=== PATIENT | male | born 1960 | race Caucasian/White ===

== ENCOUNTER → 2024-04-15 | Outpatient (CLI) | payer MEDICARE, BC ==
--- NOTE | 2024-04-15 11:02 | XR ---
EXAMINATION TYPE: XR humerus LT DATE OF EXAM: 04/15/2024 CLINICAL HISTORY: pain TECHNIQUE: Frontal and lateral images of the left humerus are obtained. COMPARISON: None. FINDINGS: There is no acute fracture/dislocation evident. The joint spaces appear within normal limi ts. There is a 1.5 cm radiopaque foreign body overlying the soft tissues of the mid humeral region. IMPRESSION: Patient is cleared for MRI.
== END | disposition home or self-care (01) ==
LOC: RADXRMAIN 10:14
PROVIDERS: ATTEND Orthopaedic Surgery
DX: Z18.10 Retained metal fragments, unspecified (principal)

== ENCOUNTER → 2024-04-21 | Outpatient (CLI) | payer MEDICARE ==
--- NOTE | 2024-05-13 13:43 | MR ---
Patient: Douglas Paula Ordering Physician: Unknown, Unknown ID: [id number] Phone, Pager: Phone: N/A Pager: N/A : 1960 Age/Gender: 63Y, M Primary Location: N/A Procedure: RT KNEE W/O CONTRAST S tudy Date: 04/21/2024 12:18:01 PM Order #: N/A EXAMINATION TYPE: MR knee RT wo con DATE OF EXAM: 04/21/2024 COMPARISON: Outside right knee x-ray April 10, 2024 HISTORY: Right knee pain for 4 to 5 years per patient TECHNIQUE: Multiplanar, multisequence images of the knee is performed without IV contrast. FINDINGS: MEDIAL MENISCUS: Medial extrusion of medial meniscus on coronal images Obliquely oriented signal post erior horn extends to inferior articular surface. LATERAL MENISCUS: Anterior and posterior horns are intact without tear. CRUCIATE LIGAMENTS: The anterior and posterior cruciate ligaments are intact and unremarkable. COLLATERAL LIGAMENTS: The medial collateral ligament and lateral collateral ligament complex are inta ct. Fluid signal surrounding the medial collateral ligament most prominent involving the deeper fiber s. EXTENSOR MECHANISM: Visualized quadriceps and patellar tendons are intact. EFFUSION: No significant suprapatellar joint effusion. POPLITEAL CYST: No popliteal/rodriguez cyst. TRICOMPARTMENT SPACES: Moderate tricompartment joint space loss and mild spurring. CARTILAGE: Cartilaginous loss medial tibiofemoral compartment. BONE MARROW SIGNAL: A few tiny subchondral cysts involving the posterior central tibia coronal image 25. OTHER: No additional significant abnormality is appreciated. IMPRESSION: 1. Oblique full thickness tear posterior horn medial meniscus. 2. [id number] MCL sprain injury. 3. Moderate tricompartment degenerative changes most prominent medial tibiofemoral compartment likely on the basis of osteoarthritis.
== END | disposition home or self-care (01) ==
LOC: RADMRIMAIN 13:11
PROVIDERS: ATTEND Orthopaedic Surgery
DX: S83.411A Sprain of medial collateral ligament of right knee, initial encounter (principal); M17.11 Unilateral primary osteoarthritis, right knee

== ENCOUNTER → 2024-06-04 | Outpatient (CLI) | payer MEDICARE, BC ==
[2024-06-04 15:14] LABS: Anion Gap 11.7 mmol/L (4.00-12.00); Carbon Dioxide 21.3 mmol/L (21.6-31.8); Potassium 4.9 mmol/L (3.5-5.5)
[2024-06-04 15:29] LABS: Basophils # (A) 0.05 X 10*3/uL (0.00-0.10); Basophils % (A) 0.9 %; Eosinophils % (A) 6.9 %; HCT 36.2 % (39.6-50.0); HGB 11.8 g/dL (13.0-17.0); Lymphocytes # (A) 1.54 X 10*3/uL (0.90-5.00); Lymphocytes % (A) 26.6 %; MCH 28.8 pg (27.0-32.0); MCHC 32.6 g/dL (32.0-37.0); MCV 88.3 FL (80.0-97.0); Mean Platelet Volume 10.6 FL (9.5-12.2); Monocytes # (A) 0.48 X 10*3/uL (0.20-1.00); Monocytes % (A) 8.3 %; NRBC Per 100 WBC 0 X 10*3/uL (0.00-0.01); Neutrophils % (A) 57.1 %; Platelet Count 275 X 10*3/uL (140-440); RDW 13.7 % (11.5-14.5); WBC 5.78 X 10*3/uL (4.50-10.00)
== END | disposition home or self-care (01) ==
LOC: LABWHC1 08:21
PROVIDERS: ATTEND Orthopaedic Surgery
DX: Z01.818 Encounter for other preprocedural examination
CPT/HCPCS: 36415; 80051; 85025

== ENCOUNTER 2024-06-11 10:35 | Day surgery (SDC) | payer MEDICARE, BC ==
[2024-06-04 12:56] VITALS: BMI 30.9
[2024-06-11] MEDS ORDERED: fentaNYL (PF) 50 MCG/ML 2 ML AMP IVP PRN (11:07)
[2024-06-11] MEDS ORDERED: HYDROmorphone 0.5 MG/0.5 ML SYRINGE IVP PRN (11:07)
[2024-06-11] MEDS ORDERED: MIDAZOLAM 2 MG/2 ML VIAL IV PRN (11:07)
[2024-06-11 11:38] LABS: Glucose,Whole Blood 169 mg/dL (70-110)
[2024-06-11] MEDS: LACTATED RINGERS 1,000 ML IV SCH (11:38)
[2024-06-11] MEDS: LIDOCAINE 1% (10MG/ML) FOR IV START INTRADERMA PRN (11:39)
[2024-06-11] MEDS: ONDANSETRON 4 MG/2 ML VIAL IVP ONE (11:39)
[2024-06-11] MEDS: IV FLUID CONTINUATION 1,000 ML IV ONE (11:40)
[2024-06-11] MEDS: DEXAMETHASONE SOD PHOSPHATE 4 MG/ML 1 ML VIAL IV ONE (11:40)
[2024-06-11] MEDS: BUPIVACAINE (PF) 0.25% 30 ML VIAL MISCELLANE ONE ×2 (11:42→12:29)
[2024-06-11] MEDS ORDERED: MIDAZOLAM 2 MG/2 ML VIAL ONE (11:54)
[2024-06-11] MEDS ORDERED: KETOROLAC 15 MG/ML 1 ML VIAL ONE (11:54)
[2024-06-11] MEDS ORDERED: LIDOCAINE 1% INJ 10MG/ML (20 ML MDV) ONE (11:54)
[2024-06-11] MEDS ORDERED: PROPOFOL 10 MG/ML 20 ML VIAL IV ONE (11:54)
[2024-06-11] MEDS ORDERED: fentaNYL (PF) 50 MCG/ML 2 ML AMP ONE (11:54)
--- NOTE | 2024-06-11 12:43 | P.OP ---
Date of Procedure: 06/11/24 Preoperative Diagnosis: Internal derangement right knee Postoperative Diagnosis: 1. Tear medial and lateral meniscus right knee 2. Grade IV chondromalacia medial femoral condyle right knee 3. Grade IV chondromalacia femoral sulcus right knee 4. Reactive synovitis medial, lateral and suprapatellar compartments right knee Procedure(s) Performed: 1. Arthroscopic partial medial and lateral meniscectomy right knee 2. Arthroscopic microfracture medial femoral condyle right knee 3. Arthroscopic microfracture femoral sulcus right knee 4. Arthroscopic partial synovectomy medial, lateral and suprapatellar compartments right knee Anesthesia: CARINAA, local Surgeon: Isaac Reese Estimated Blood Loss (ml): 5 Pathology: none sent Condition: stable Disposition: PACU Indications for Procedure: 63-year-old patient seen with progressive right knee pain. After having treatment options discussed, he elected to proceed with arthroscopy. Operative Findings: See description of procedure Description of Procedure: Patient was taken to the operative suite. Patient underwent a general anesthetic by the department of anesthesia. Patient was given preoperative antibiotics. The right lower extremity was placed in a well-padded arthroscopic leg avalos. The right leg was prepped and draped in the normal sterile orthopedic fashion. A lateral parapatellar and suprapatellar incision was made. Trochars were inserted. Arthroscopy was initiated. Suprapatellar pouch revealed diffuse thick reactive synovitis. The patellofemoral joint appeared to articulate congruently. There was grade I chondromalacia patella and grade III/IV chondromalacia changes of the femoral sulcus with osteochondral flap tears. The scope was guided into the medial gutter. No loose bodies or plica were identified. The scope was then guided into the medial compartment. A medial parapatellar incision was made. Trocar inserted followed by probe. There was a complex tear involving the posterior horn of the medial meniscus. There were grade III/IV chondromalacia changes medial femoral condyle with osteochondral flap tears. There was thick reactive synovitis anteriorly. I performed a partial medial meniscectomy getting down to stable meniscal tissue. I performed a chondroplasty of the medial femoral condyle getting down to stable osteochondral tissue. I performed a partial synovectomy decompressing the reactive synovitis. I did note an area of exposed bone along the medial femoral condyle measuring just over a centimeter. I introduced a microfracture awl and I performed a microfracture to the area of grade IV chondromalacia/exposed bone penetrating the bone with resultant bleeding at the microfracture site. The residual meniscus was now probed and was found to be stable. The residual osteochondral surface appeared stable. There was good decompression of the synovitis. Scope and probe were then guided into the intercondylar notch. Cruciates were identified, probed and found to be stable. The scope and probe were then guided into lateral compartment. There was a radial tear involving the mid body lateral meniscus. There were grade I/II chondromalacia changes lateral compartment with no tears. There was some thick reactive synovitis anteriorly. I performed a partial lateral meniscectomy getting down to stable meniscal tissue. I performed a partial synovectomy decompressing the reactive synovitis. The residual meniscus was probed and was found to be stable. There was good decompression of the synovitis. The scope was in guided back into the suprapatellar compartment. Introduced a motorized shaver into the suprapatellar compartment. I debrided some piecemeal fragments of meniscus that I encountered. I performed a chondroplasty of the femoral sulcus getting down to stable osteochondral tissue. I performed a partial synovectomy decompressing the reactive synovitis in the supra compartment. I did note an area of grade IV chondromalacia/exposed bone medial femoral condyle measuring about 8 mm x 1.5 cm. I introduced a microfracture awl and I performed microfracture to the area of exposed bone/grade IV chondromalacia penetrating the bone with resultant bleeding at the microfracture site. The residual osteochondral surface was probed and was found to be stable. There was good decompression of the synovitis. I took 1 more look around the entire knee, no residual debris. Inst ruments were now removed from the joint. The joint was infiltrated with .25% Marcaine. Steri-Strips were applied to the portal sites. Sterile dressings were applied. The patient was placed into a ANTONIO hose. No tourniquet was utilized. The patient was awakened, transferred to a bed and taken to recovery stable satisfactory condition.
[2024-06-11 12:45] VITALS: TEMP 97
[2024-06-11] MEDS: traMADol 50 MG TAB PO STA (13:28)
[2024-06-11 13:56] VITALS: RESP 20
[2024-06-11 14:22] VITALS: BP 142/78; PULSE 56
--- NOTE | 2024-06-11 14:50 | HP ---
HISTORY AND PHYSICAL DATE OF PROPOSED SURGERY: 06/11/2024 Douglas Paula is a 63-year-old gentleman seen with progressive right knee pain. We discussed options. He elected to proceed with right knee arthroscopy. Consent is obtained. PAST MEDICAL HISTORY: Cardiovascular disease, hypertension, hyperlipidemia, hai-cjtzblq-kdpgkuucb diabetes. PAST SURGICAL HISTORY: Noncontributory. DAILY MEDICATIONS: 1. Aspirin. 2. Atorvastatin. 3. Lisinopril. 4. Metformin. 5. Metoprolol. ALLERGIES: Penicillin. SOCIAL HISTORY: Denies tobacco use. PHYSICAL EVALUATION OF THE RIGHT KNEE: Range of motion is 0 to 120 degrees. Mild effusion. Tenderness, medial joint line. Positive medial Martín's. Ligaments stable. Hip rotation without pain. Distal neurovascular exam is intact. MRI right knee revealed a medial meniscal tear. IMPRESSION: 1. Internal derangement of right knee with medial meniscal tear. 2. Hypertension. 3. Hyperlipidemia. 4. Hsj-fbolbyv-aiqljvkug diabetes. PLAN: Right knee arthroscopy with partial medial meniscectomy and debridement. Surgery is scheduled for 06/11/2024. MMODL / IJN: [id number] /
== END 2024-06-11 14:29 | disposition home or self-care (01) ==
LOC: OR 10:35
PROVIDERS: ATTEND Orthopaedic Surgery
DX: M23.91 Unspecified internal derangement of right knee

== ENCOUNTER 2024-10-13 15:47 | Inpatient (IN) | payer MEDICARE, BC ==
[2024-10-13] MEDS: ASPIRIN 81 MG PO STA (16:21)
--- NOTE | 2024-10-13 16:24 | ED ---
General Adult HPI - General Chief complaint: Chest Pain Stated complaint: Chest pain Time Seen by Provider: 10/13/24 16:06 Source: patient Mode of arrival: ambulatory Limitations: no limitations - History of Present Illness Initial comments: Dictation was produced using [email or web address] dictation software. please excuse any grammatical, word or spelling errors. Chief Complaint: 63-year-old male presents to the emergency department for chest pain History of Present Illness: Patient 63-year-old male presents emergency department with chest pain states that it feels like a tightness in his lungs denies any shortness of breath states that when his lungs feel tight he feels tightness in his jaw on his face. States that it all comes together at once in all resides at once. He has extensive history coronary disease including multiple coronary artery stents. Denies any radiation of symptoms down the extremities. No associated paresthesia, nausea or diaphoresis. Patient denies any symptoms at the bedside The ROS documented in this emergency department record has been reviewed and confirmed by me. Those systems with pertinent positive or negative responses have been documented in the HPI. All other systems are other negative and/or noncontributory. - Related Data Home Medications Medication Instructions Recorded Confirmed Aspirin EC [Ecotrin Low Dose] 81 mg PO DAILY 06/04/24 10/13/24 Atorvastatin [Lipitor] 80 mg PO DAILY 06/04/24 10/13/24 Fexofenadine HCl 180 mg PO DAILY PRN 06/04/24 10/13/24 Metoprolol Tartrate [Lopressor] 50 mg PO BID 06/04/24 10/13/24 Sildenafil Citrate [Sildenafil] 40 - 60 mg PO DAILY PRN 06/04/24 10/13/24 glipiZIDE [Glucotrol] 10 mg PO BID-W/MEALS 06/04/24 10/13/24 lisinopriL [Zestril] 10 mg PO DAILY 06/04/24 10/13/24 metFORMIN HCL 1,000 mg PO BID-W/MEALS 06/04/24 10/13/24 Allergies Allergy/AdvReac Type Severity Reaction Status Date / Time Penicillins Allergy Causes Verified 10/13/24 16:27 "internal pain" & severe itching. Review of Systems ROS Statement: Those systems with pertinent positive or pertinent negative responses have been documented in the HPI. ROS Other: All systems not noted in ROS Statement are negative. Past Medical History Past Medical History: Chest Pain / Angina, Diabetes Mellitus, Hypertension, Myocardial Infarction (OK) History of Any Multi-Drug Resistant Organisms: None Reported Past Surgical History: Heart Catheterization With Stent Past Psychological History: No Psychological Hx Reported Smoking Status: Never smoker Past Alcohol Use History: None Reported Past Drug Use History: None Reported General Exam - General Exam Comments Initial Comments: PHYSICAL EXAM: General Impression: Alert and oriented x3, not in acute distress HEENT: Normocephalic atraumatic, extra-ocular movements intact, pupils equal and reactive to light bilaterally, mucous membranes moist. Cardiovascular: Heart regular rate and rhythm Chest: Able to complete full sentences, no retractions, no tachypnea Abdomen: abdomen soft, non-tender, non-distended, no organomegaly Musculoskeletal: Pulses present and equal in all extremities, no peripheral edema Motor: no focal deficits noted Neurological: CN II-XII grossly intact, no focal motor or sensory deficits noted Skin: Intact with no visualized rashes Psych: Normal affect and mood Limitations: no limitations Course Vital Signs 10/13/24 10/13/24 10/13/24 15:53 16:10 17:50 Temperature 97.7 F Pulse Rate 68 79 68 Pulse Rate [ 75 Twister In ] Respiratory 20 18 18 Rate Blood Pressure 193/91 195/105 188/93 O2 Sat by Pulse 99 96 Oximetry - Reevaluation(s) Reevaluation #1: 10/13/24 17:31 Repeat EKG performed at 1630 showing no dynamic changes. EKG Findings - EKG Comments: EKG Findings:: My EKG interpretation: Ventricular rate 67, sinus rhythm,. Will 202, cures 119, QTc 411. No DC prolongation, no QTC prolongation. No old EKG for comparison and in electronic medical record there does appear to be diffuse depressions in inferior leads. There does appear to be isolated depression in V6 and less than V5. Overall this EKG is concerning for ischemic changes. There is no ST elevations. Medical Decision Making - Medical Decision Making Was pt. sent in by a medical professional or institution (, PA, DIRECTOR OF FINANCIAL REPORTING, urgent care, hospital, or care home...) When possible be specific @ -No Did you speak to anyone other than the patient for history (EMS, parent, family, police, friend...)? What history was obtained from this source @ -No Did you review nursing and triage notes (agree or disagree)? Why? @ -I reviewed and agree with nursing and triage notes Were old charts reviewed (outside hosp., previous admission, EMS record, old EKG, old radiological studies, urgent care reports/EKG's, care home records)? Report findings @ -No old charts were reviewed Differential Diagnosis (chest pain, altered mental status, abdominal pain women, abdominal pain men, vaginal bleeding, musculoskeletal, weakness, fever, dyspnea, syncope, headache, dizziness, GI bleed, back pain, seizure, CVA, palpatations, mental health)? @ -Differential Chest Pain: Stable Angina, Unstable Angina, STEMI, NSTEMI Aortic Dissection, Pneumothorax, Musculoskeletal, Esophageal Spasm GERD, Cholecystitis, Pancreatitis, Zoster, this is not meant to be an all-inclusive list. EKG interpreted by me (3pts min.). @ -See above X-rays interpreted by me (1pt min.). @ -Chest x-ray is nonacute CT interpreted by me (1pt min.). @ -None done U/S interpreted by me (1pt. min.). @ -None done What testing was considered but not performed or refused? (CT, X-rays, U/S, labs)? Why? @ -None What meds were considered but not given or refused? Why? @ -None Was smoking cessation discussed for >3mins.? @ -No Were there social determinants of health that impacted care today? How? (Homelessness, low income, unemployed, alcoholism, drug addiction, transportation, low edu. Level, literacy, decrease access to med. care, [facility], rehab)? @ -No Was there de-escalation of care discussed even if they declined (Discuss DNR or withdrawal of care, Hospice)? DNR status @ -No What co-morbidities impacted this encounter? (DM, HTN, Smoking, COPD, CAD, Cancer, CVA, ARF, Chemo, Hep., AIDS, mental health diagnosis, sleep apnea, morbid obesity)? @ -Coronary artery disease Was patient admitted / discharged? Hospital course, mention meds given and route, prescriptions, significant lab abnormalities, going to OR and other pertinent info. @ -63-year-old male with a history of coronary artery disease and multiple coronary artery stents presents to the emergency department atypical chest pain typical features. Patient pain-free at the bedside is well-appearing. EKG concerning for ischemia. We do not have old EKGs for comparison. Serial EKG showed no dynamic changes. Laboratory evaluation obtained. Troponin 0.042. Rest of labs unremarkable. Patient reevaluated at bedside at 5:50 PM still pain-free. Patient given aspirin and started on heparin will be admitted for concerns of non-ST segment elevation OK. Did you discuss the management of the patient with other professionals (professionals i.e. , PA, DIRECTOR OF FINANCIAL REPORTING, lab, RT, psych nurse, social services assistant, physician's assistant, teacher, officer captain, ed case manager)? Give summary @ -Case discussed with hospitalist for admission Was critical care preformed (if so, how long)? @ -Yes, 33 minutes for management of acute coronary syndrome Undiagnosed new problem with uncertain prognosis? @ -No Drug Therapy requiring intensive monitoring for toxicity (Heparin, Nitro, Insulin, Cardizem)? @ -No Were any procedures done? @ -No Diagnosis/symptom? Acute, or Chronic, or Acute on Chronic? Uncomplicated (without systemic symptoms) or Complicated (systemic symptoms)? @ -NSTEMI Side effects of treatment? @ -No Exacerbation, Progression, or Severe Exacerbation? @ -No Poses a threat to life or bodily function? How? (Chest pain, [place], [place], pneumonia, PE, COPD, DKA, ARF, appy, cholecystitis, CVA, Diverticulitis, Homicidal, Suicidal, threat to staff... and all critical care pts) @ -yes - Lab Data Result diagrams: 10/13/24 16:00 10/13/24 16:00 Lab Results 10/13/24 10/13/24 10/13/24 Range/Units 16:00 16:00 16:00 WBC 8.3 (3.8-10.6) k/uL RBC 4.38 (4.30-5.90) m/uL Hgb 12.6 L (13.0-17.5) gm/dL Hct 38.6 L (39.0-53.0) % MCV 88.2 (80.0-100.0) fL MCH 28.7 (25.0-35.0) pg MCHC 32.5 (31.0-37.0) g/dL RDW 13.7 (11.5-15.5) % Plt Count 252 (150-450) k/uL MPV 7.7 Neutrophils % 72 % Lymphocytes % 19 % Monocytes % 5 % Eosinophils % 3 % Basophils % 0 % Neutrophils # 6.0 (1.3-7.7) k/uL Lymphocytes # 1.6 (1.0-4.8) k/uL Monocytes # 0.4 (0-1.0) k/uL Eosinophils # 0.3 (0-0.7) k/uL Basophils # 0.0 (0-0.2) k/uL PT 11.5 (10.0-12.5) sec INR 1.0 (<1.2) APTT 18.3 L (22.0-30.0) sec Sodium 137 (137-145) mmol/L Potassium 4.6 (3.5-5.1) mmol/L Chloride 100 (98-107) mmol/L Carbon Dioxide 26 (22-30) mmol/L Anion Gap 11 mmol/L BUN 12 (9-20) mg/dL Creatinine 0.96 (0.66-1.25) mg/dL Est GFR (CKD-EPI)AfAm >90 (>60 ml/min/1.73 sqM) Est GFR (CKD-EPI)NonAf 83 (>60 ml/min/1.73 sqM) Glucose 216 H (74-99) mg/dL Calcium 10.3 H (8.4-10.2) mg/dL Magnesium 1.5 L (1.6-2.3) mg/dL Total Bilirubin 1.6 H (0.2-1.3) mg/dL AST 28 (17-59) U/L ALT 23 (4-49) U/L Alkaline Phosphatase 64 (38-126) U/L Troponin I (0.000-0.034) ng/mL NT-Pro-B Natriuret Pep 2230 pg/mL Total Protein 7.3 (6.3-8.2) g/dL Albumin 4.5 (3.5-5.0) g/dL 10/13/24 Range/Units 16:00 WBC (3.8-10.6) k/uL RBC (4.30-5.90) m/uL Hgb (13.0-17.5) gm/dL Hct (39.0-53.0) % MCV (80.0-100.0) fL MCH (25.0-35.0) pg MCHC (31.0-37.0) g/dL RDW (11.5-15.5) % Plt Count (150-450) k/uL MPV Neutrophils % % Lymphocytes % % Monocytes % % Eosinophils % % Basophils % % Neutrophils # (1.3-7.7) k/uL Lymphocytes # (1.0-4.8) k/uL Monocytes # (0-1.0) k/uL Eosinophils # (0-0.7) k/uL Basophils # (0-0.2) k/uL PT (10.0-12.5) sec INR (<1.2) APTT (22.0-30.0) sec Sodium (137-145) mmol/L Potassium (3.5-5.1) mmol/L Chloride (98-107) mmol/L Carbon Dioxide (22-30) mmol/L Anion Gap mmol/L BUN (9-20) mg/dL Creatinine (0.66-1.25) mg/dL Est GFR (CKD-EPI)AfAm (>60 ml/min/1.73 sqM) Est GFR (CKD-EPI)NonAf (>60 ml/min/1.73 sqM) Glucose (74-99) mg/dL Calcium (8.4-10.2) mg/dL Magnesium (1.6-2.3) mg/dL Total Bilirubin (0.2-1.3) mg/dL AST (17-59) U/L ALT (4-49) U/L Alkaline Phosphatase (38-126) U/L Troponin I 0.042 H* (0.000-0.034) ng/mL NT-Pro-B Natriuret Pep pg/mL Total Protein (6.3-8.2) g/dL Albumin (3.5-5.0) g/dL Disposition Clinical Impression: NSTEMI (non-ST elevated myocardial infarction) Disposition: ADMITTED IP TO THIS HOSP Condition: Serious Referrals: Juancho Carmichael MD [Primary Care Provider] - 1-2 days Decision Time: 17:51
[2024-10-13 16:31] LABS: ALT 23 U/L (4-49); AST 28 U/L (17-59); African American GFR (CKD) >90 (>60 ml/min/1.73 sqM); Albumin 4.5 g/dL (3.5-5.0); Alkaline Phosphatase 64 U/L (38-126); Anion Gap 11 mmol/L; Blood Urea Nitrogen 12 mg/dL (9-20); Calcium 10.3 mg/dL (8.4-10.2); Carbon Dioxide 26 mmol/L (22-30); Chloride 100 mmol/L (98-107); Glucose 216 mg/dL (74-99); Magnesium 1.5 mg/dL (1.6-2.3); Non-African American GFR(CKD) 83 (>60 ml/min/1.73 sqM); Potassium 4.6 mmol/L (3.5-5.1); Sodium 137 mmol/L (137-145); Total Bilirubin 1.6 mg/dL (0.2-1.3); Total Protein 7.3 g/dL (6.3-8.2)
[2024-10-13 16:38] LABS: Basophils % (A) 0 %; Eosinophils # (A) 0.3 k/uL (0-0.7); Eosinophils % (A) 3 %; HCT 38.6 % (39.0-53.0); HGB 12.6 gm/dL (13.0-17.5); Lymphocytes # (A) 1.6 k/uL (1.0-4.8); Lymphocytes % (A) 19 %; MCH 28.7 pg (25.0-35.0); MCHC 32.5 g/dL (31.0-37.0); MCV 88.2 fL (80.0-100.0); Mean Platelet Volume 7.7; Monocytes # (A) 0.4 k/uL (0-1.0); Monocytes % (A) 5 %; NT-Pro-B-Type Natriuretic Pept 2230 pg/mL; Neutrophils % (A) 72 %; Platelet Count 252 k/uL (150-450); RBC 4.38 m/uL (4.30-5.90); RDW 13.7 % (11.5-15.5); WBC 8.3 k/uL (3.8-10.6)
[2024-10-13 16:43] LABS: Prothrombin Time 11.5 sec (10.0-12.5)
[2024-10-13 16:45] LABS: Partial Thromboplastin Time 18.3 sec (22.0-30.0)
--- NOTE | 2024-10-13 17:20 | XR ---
EXAMINATION TYPE: XR chest 2V DATE OF EXAM: 10/13/2024 4:42 PM COMPARISON: None. CLINICAL INDICATION: Male, 63 years old with history of Chest Pain, TECHNIQUE: XR chest 2V view(s) obtained. FINDINGS: The heart size is normal. The pulmonary vasculature is normal. The lungs are clear. IMPRESSION: 1. No acute pulmonary process. [facility], Workstation: [facility], 10/13/2024 5:17 PM
[2024-10-13] MEDS ORDERED: NITROGLYCERIN SL TABS 0.4 MG TAB SUBLINGUAL PRN (17:44)
[2024-10-13] MEDS: HEPARIN SODIUM 1,000 UN/ML (10ML VL) IV ONE (17:51)
[2024-10-13] MEDS: HEPARIN SOD,PORK IN 0.45% NACL 25,000 UNIT in 0.45% NACL 1 250ML.BAG IV SCH (17:52)
[2024-10-14] MEDS: HEPARIN SODIUM 1,000 UN/ML (10ML VL) IV PRN (01:46)
[2024-10-14] MEDS ORDERED: DEXTROSE 50% SYRINGE 50 ML IVP PRN ×2 (06:40)
[2024-10-14 08:05] LABS: Glucose,Whole Blood 132 mg/dL (70-110)
[2024-10-14] MEDS ORDERED: ALPRAZolam 0.5 MG TAB PO PRN (08:09)
[2024-10-14] MEDS ORDERED: ALPRAZolam 0.25 MG TAB PO PRN (08:09)
[2024-10-14] MEDS: INSULIN ASPART (NovoLOG) 100 UNIT/ML VIAL SQ SCH (08:12)
[2024-10-14] MEDS: lisinopriL 10 MG TAB PO SCH (08:23)
[2024-10-14] MEDS: ASPIRIN 81 MG PO SCH (08:23)
[2024-10-14] MEDS: ATORVASTATIN 80 MG TAB PO SCH (08:23)
[2024-10-14] MEDS: SODIUM CHLORIDE 0.9% 1,000 ML in EMPTY BAG 1 BAG IV SCH (08:32)
[2024-10-14] MEDS ORDERED: ASPIRIN 325 MG TAB PO SCH (09:00)
[2024-10-14] MEDS: SODIUM CHLORIDE 0.9% 1,000 ML IV SCH ×2 (09:25→15:51)
[2024-10-14] MEDS: METOPROLOL TARTRATE 50 MG TAB PO SCH (09:30)
[2024-10-14] MEDS: IV FLUID CONTINUATION 1,000 ML IV ONE (10:08)
[2024-10-14] MEDS: HEPARIN SODIUM,PORCINE (1 ML) 2,500 UNIT in SODIUM CHLORIDE 0.9% 250 ML IRRIGATION ONE (10:09)
[2024-10-14] MEDS: HEPARIN SODIUM,PORCINE 10,000 UNIT in SODIUM CHLORIDE 0.9% 1,000 ML IRRIGATION ONE (10:09)
[2024-10-14] MEDS: MIDAZOLAM 2 MG/2 ML VIAL IVP ONE (10:10)
[2024-10-14] MEDS: LIDOCAINE 1% INJ 10MG/ML (20 ML MDV) SQ ONE (10:14)
[2024-10-14] MEDS: VERAPAMIL SYRINGE (5 MG/10 ML) INTRAARTER ONE (10:18)
[2024-10-14] MEDS: HEPARIN SODIUM 1,000 UN/ML (10ML VL) IVP ONE ×2 (10:21→10:36)
[2024-10-14] MEDS: TICAGRELOR 90 MG TAB PO ONE (11:28)
[2024-10-14] MEDS: NITROGLYCERIN 1000MCG/10ML SYRINGE INTRAARTER ONE (11:39)
[2024-10-14] MEDS: NITROGLYCERIN 1000MCG/10ML SYRINGE INTRACORON ONE (11:46)
[2024-10-14] MEDS: IOPAMIDOL-370 100ML BTL INJ ONE (11:49)
[2024-10-14] MEDS ORDERED: ZOLPIDEM 5 MG TAB PO PRN (12:19)
[2024-10-14] MEDS ORDERED: RX INFO: IV CONTRAST WAS GIVEN 1 EACH MISC MISCELLANE PRN (12:19)
[2024-10-14] MEDS ORDERED: ATROPINE SULFATE 0.1 MG/ML 10ML SYRINGE IV PRN (12:19)
[2024-10-14] MEDS ORDERED: MAG HYDROX/AL HYDROX/SIMETH 30 ML CUP PO PRN (12:19)
[2024-10-14] MEDS ORDERED: ACETAMINOPHEN TAB 325 MG TAB PO PRN (12:25)
[2024-10-14 14:00] VITALS: BMI 32.3
--- NOTE | 2024-10-14 14:16 | P.CRDCN ---
History of Present Illness Consult date: 10/14/24 Consult reason: chest pain History of present illness: This is a 63-year-old male patient of Dr. Del Toro with past medical history of diabetes mellitus type 2, coronary artery disease with previous TN in 2017 status post 2 stent placement at that time. We have been asked to evaluate the patient for chest pain. Patient states that he has been having trouble with bacterial upper respiratory infection but yesterday developed chest pain that th en went to his jaw and his ears and then he developed a sinus headache. He said it lasted for about 1 hour on and off. He took some ibuprofen that did not help. He did not have nitroglycerin at home. He denies having any chest pain at this time. Patient is seen in the emergency center waiting for a bed on the cardiac stepdown unit. He has been started on a heparin drip. Discussed patient option of cardiac catheterization which she is agreeable to move forward with. Regarding diabetes, patient does not know his most recent A1c but states he usually runs around 7. Patient presented with a blood pressure 193/91 and currently blood pressure is 141/73, heart rate 52, pulse ox 99%. -EKG: Sinus rhythm with T wave inversions -Chest x-ray: No acute process. -Laboratory studies: WBC 8.3, hemoglobin 12.6. Potassium 4.6, creatinine 0.96. Troponin 0.042, 0.053, 0.069. proBNP 2230. Magnesium 1.5. -Home cardiac medications: Aspirin 81 mg daily, atorvastatin 80 mg daily, lisinopril 10 mg daily, Lopressor 50 mg twice daily. Review Of Systems: At the time of my exam: CONSTITUTIONAL: Denies fever or chills. HEENT: Denies blurred vision, vision changes, or eye pain. Denies hemoptysis CARDIOVASCULAR: Denies chest pain. Denies orthopnea. Denies PND. Denies palpitations RESPIRATORY: Denies shortness of breath. GASTROINTESTINAL: Denies abdominal pain. Denies nausea or vomiting. HEMATOLOGIC: Denies bleeding disorders. GENITOURINARY: Denies any blood in urine. SKIN: Denies puritis. Denies rash. Physical examination: Gen: This is a 63-year-old male in no acute distress VS: reviewed HEENT: Head is atraumatic, normocephalic. Pupils equal, round. Sclerae is anicteric. NECK: Supple. No JVD. LUNGS: Clear to auscultation. No wheezes or rhonchi. No intercostal retractions. HEART: Regular rate and rhythm. No murmur. ABDOMEN: Soft No tenderness. EXTREMITIES: No pedal edema. No calf tenderness. NEUROLOGICAL: Patient is awake, alert and oriented x3. Assessment: Elevated troponin with abnormal EKG, non-ST KRISTA History of coronary artery disease with previous TN in 2017 s/p stenting in the left main and 1 other vessel Diabetes mellitus type 2 Hypertension Hyperlipidemia Plan: Resume patient's home cardiac medications Continue heparin drip Patient will be scheduled for cardiac catheterization today with Dr. Gupta Obtain records from patient's primary rigger up Obtain 2-D echocardiogram and Doppler study to assess cardiac structure and function Further recommendations to follow based upon clinical course Thank you kindly for this consultation. Nurse practitioner note has been reviewed, I agree with documented findings and plan of care. Patient was seen and examined. Past Medical History Past Medical History: Chest Pain / Angina, Diabetes Mellitus, Hypertension, Myocardial Infarction (TN) Last Myocardial Infarction Date:: 2016 History of Any Multi-Drug Resistant Organisms: None Reported Past Surgical History: Heart Catheterization With Stent Additional Past Surgical History / Comment(s): 2 stents in 2017 Past Anesthesia/Blood Transfusion Reactions: No Reported Reaction Date of Last Stent Placement:: 2016 Past Psychological History: No Psychological Hx Reported Smoking Status: Never smoker Past Alcohol Use History: None Reported Past Drug Use History: None Reported Medications and Allergies Home Medications Medication Instructions Recorded Confirmed Type Aspirin EC [Ecotrin Low Dose] 81 mg PO DAILY 06/04/24 10/13/24 History Atorvastatin [Lipitor] 80 mg PO DAILY 06/04/24 10/13/24 History Fexofenadine HCl 180 mg PO DAILY PRN 06/04/24 10/13/24 History Metoprolol Tartrate [Lopressor] 50 mg PO BID 06/04/24 10/13/24 History Sildenafil Citrate [Sildenafil] 40 - 60 mg PO DAILY PRN 06/04/24 10/13/24 H istory glipiZIDE [Glucotrol] 10 mg PO BID-W/MEALS 06/04/24 10/13/24 History lisinopriL [Zestril] 10 mg PO DAILY 06/04/24 10/13/24 History metFORMIN HCL 1,000 mg PO BID-W/MEALS 06/04/24 10/13/24 History Allergies Allergy/AdvReac Type Severity Reaction Status Date / Time Penicillins Allergy Causes Verified 10/13/24 16:27 "internal pain" & severe itching. Physical Exam Vitals: Vital Signs Temp Pulse Pulse Resp BP BP Pulse Ox 10/14/24 06:06 52 L 18 141/73 99 10/14/24 03:00 52 L 16 98 10/14/24 00:25 56 L 16 140/55 97 10/13/24 23:01 52 L 16 140/76 95 10/13/24 20:32 53 L 18 140/76 95 10/13/24 19:00 55 L 18 142/83 97 10/13/24 17:50 68 18 188/93 96 10/13/24 16:10 79 75 18 195/105 10/13/24 15:53 97.7 F 68 20 193/91 99 Intake and Output 10/13/24 10/14/24 10/14/24 22:59 06:59 14:59 Intake Total 79.167 77.798 Balance 79.167 77.798 Intake: Intake, IV Titration 79.167 77.798 Amount Heparin Sod,Pork in 0.45% 79.167 77.798 NaCl 25,000 unit In 0.45 % NaCl 1 250ml.bag @ 8.89 UNITS/KG/HR 10 mls/hr IV .Q24H [facility] Rx#:[id number] Other: Weight 112.491 kg 111.13 kg Results 10/13/24 16:00 10/13/24 16:00 Cardiac Enzymes 10/13/24 10/13/24 10/13/24 Range/Units 16:00 16:00 18:34 AST 28 (17-59) U/L Troponin I 0.042 H* 0.053 H* (0.000-0.034) ng/mL 10/14/24 Range/Units 00:19 AST (17-59) U/L Troponin I 0.069 H* (0.000-0.034) ng/mL Coagulation 10/13/24 10/14/24 Range/Units 16:00 00:19 PT 11.5 (10.0-12.5) sec APTT 18.3 L 30.3 H (22.0-30.0) sec CBC 10/13/24 Range/Units 16:00 WBC 8.3 (3.8-10.6) k/uL RBC 4.38 (4.30-5.90) m/uL Hgb 12.6 L (13.0-17.5) gm/dL Hct 38.6 L (39.0-53.0) % Plt Count 252 (150-450) k/uL Comprehensive Metabolic Panel 10/13/24 Range/Units 16:00 Sodium 137 (137-145) mmol/L Potassium 4.6 (3.5-5.1) mmol/L Chloride 100 (98-107) mmol/L Carbon Dioxide 26 (22-30) mmol/L BUN 12 (9-20) mg/dL Creatinine 0.96 (0.66-1.25) mg/dL Glucose 216 H (74-99) mg/dL Calcium 10.3 H (8.4-10.2) mg/dL AST 28 (17-59) U/L ALT 23 (4-49) U/L Alkaline Phosphatase 64 (38-126) U/L Total Protein 7.3 (6.3-8.2) g/dL Albumin 4.5 (3.5-5.0) g/dL Current Medications Generic Name Dose Route Start Last Admin Trade Name Devinq PRN Reason Stop Dose Admin Aspirin 325 mg 10/14/24 09:00 Aspirin 325 Mg Tab PO DAILY [facility] Atorvastatin Calcium 80 mg 10/14/24 09:00 Atorvastatin 80 Mg Tab PO DAILY [facility] Dextrose/Water 25 ml 10/14/24 06:40 Dextrose 50% Syringe 50 Ml IVP PER PROTOCOL PRN Hypoglycemia Protocol Dextrose/Water 50 ml 10/14/24 06:40 Dextrose 50% Syringe 50 Ml IVP PER PROTOCOL PRN Hypoglycemia Protocol Heparin Sodium (Porcine) 0 unit 10/13/24 17:28 10/14/24 01:46 Heparin Sodium 1,000 Un/Ml (10ml Vl) IV 5,550 unit PER PROTOCOL PRN Administration Low PTT Protocol Heparin Sodium/Sodium Chloride 250 mls @ 10 mls/hr 10/13/24 17:30 10/14/24 07:36 25,000 unit/ Sodium Chloride IV 11.89 units/kg/hr .Q24H PATRICIO 13.375 mls/hr Titration Protocol 8.89 UNITS/KG/HR Insulin Aspart 0 unit 10/14/24 07:30 Insulin Aspart (Novolog) 100 Unit/Ml Vial SQ ACHS [facility] Protocol Lisinopril 10 mg 10/14/24 09:00 Lisinopril 10 Mg Tab PO DAILY [facility] Nitroglycerin 0.4 mg 10/13/24 17:44 Nitroglycerin Sl Tabs 0.4 Mg Tab SUBLINGUAL Q5M PRN Chest Pain Intake and Output 10/13/24 10/14/24 10/14/24 22:59 06:59 14:59 Intake Total 79.167 77.798 Balance 79.167 77.798 Intake: Intake, IV Titration 79.167 77.798 Amount Heparin Sod,Pork in 0.45% 79.167 77.798 NaCl 25,000 unit In 0.45 % NaCl 1 250ml.bag @ 8.89 UNITS/KG/HR 10 mls/hr IV .Q24H [facility] Rx#:[id number] Other: Weight 112.491 kg 111.13 kg 10/13/24 16:00 10/13/24 16:00
--- NOTE | 2024-10-14 14:17 | P.HPIM ---
History of Present Illness H&P Date: 10/14/24 This is a pleasant 63-year-old gentleman with past medical history significant for coronary artery disease and prior stenting back in 2018. Patient comes in with complaints of sharp pain in the chest with radiation into the ear jaw and sinuses. Patient states that the pain was coming and going since the weekend initially thought it was a sinus infection however when the pain became sharp and not subsiding he came into the hospital for further evaluation. Chest x-ray reveals no acute cardiopulmonary process. Patient was found to have troponin elevation at 0.042, 0.053 and 0.069. EKG on admission reveals sinus rhythm with PVCs, inverted T wave in lead II. Started on IV heparin and admitted to the hospital with a cardiology consultation. 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 Currently evaluated in extended stay unit sitting up in the chair. He is currently denying any further reports of chest discomfort or shortness of breath. His TR band is an intact and he is recovering from the catheterization. Patient has been started on dual ant iplatelet therapy with aspirin and Brilinta. Echocardiogram has been taken and currently pending reports at this time. REVIEW OF SYSTEMS: CONSTITUTIONAL: No fever, no malaise, no fatigue. HEENT: No recent visual problems or hearing problems. Denied any sore throat. CARDIOVASCULAR: No chest pain, orthopnea, PND, no palpitations, no syncope. PULMONARY: No shortness of breath, no cough, no hemoptysis. GASTROINTESTINAL: No diarrhea, no nausea, no vomiting, no abdominal pain. NEUROLOGICAL: No headaches, no weakness, no numbness. HEMATOLOGICAL: Denies any bleeding or petechiae. GENITOURINARY: Denies any burning micturition, frequency, or urgency. MUSCULOSKELETAL/RHEUMATOLOGICAL: Denies any joint pain, swelling, or any muscle pain. ENDOCRINE: Denies any polyuria or polydipsia. The rest of the 14-point review of systems is negative. PHYSICAL EXAMINATION: GENERAL: The patient is alert and oriented x3, not in any acute distress. Well developed, well nourished. HEENT: Pupils are round and equally reacting to light. EOMI. No scleral icterus. No conjunctival pallor. Normocephalic, atraumatic. No pharyngeal erythema. No thyromegaly. CARDIOVASCULAR: S1 and S2 present. No murmurs, rubs, or gallops. PULMONARY: Chest is clear to auscultation, no wheezing or crackles. ABDOMEN: Soft, nontender, nondistended, normoactive bowel sounds. No palpable organomegaly. MUSCULOSKELETAL: No joint swelling or deformity. EXTREMITIES: No cyanosis, clubbing, or pedal edema. NEUROLOGICAL: Gross neurological examination did not reveal any focal deficits. SKIN: No rashes. Assessment and plan Acute non-ST elevation SD status postcardiac catheterization with stenting to the RCA History of coronary artery disease with prior cardiac stenting History of hypertension Diabetes mellitus type 2 GI Prophylaxis Full Code Plan Hold metformin Resume glipizide and start accuchecks ACHS and sliding scale insulin Continue dual antiplatelet medication with aspirin and brilinta Echocardiogram ordered and pending Continue cardiac employee benefits director electrolytes and renal function The impression and plan of care has been dictated by Cherri Lopez Nurse Practitioner as directed. Dr. Kaley MD I have performed a history and physical examination and medical decision making of this patient, discussed the same with the dictator, and agree with the dictators assessment and plan as written, documented as a scribe. Based on total visit time, I have performed more than 50% of this visit. Past Medical History Past Medical History: Chest Pain / Angina, Diabetes Mellitus, Hypertension, Myocardial Infarction (SD) Last Myocardial Infarction Date:: 2016 History of Any Multi-Drug Resistant Organisms: None Reported Past Surgical History: Heart Catheterization With Stent Additional Past Surgical History / Comment(s): 2 stents in 2017 Past Anesthesia/Blood Transfusion Reactions: No Reported Reaction Date of Last Stent Placement:: 2016 Past Psychological History: No Psychological Hx Reported Smoking Status: Never smoker Past Alcohol Use History: None Reported Past Drug Use History: None Reported Medications and Allergies Home Medications Medication Instructions Recorded Confirmed Type Aspirin EC [Ecotrin Low Dose] 81 mg PO DAILY 06/04/24 10/13/24 History Atorvastatin [Lipitor] 80 mg PO DAILY 06/04/24 10/13/24 History Fexofenadine HCl 180 mg PO DAILY PRN 06/04/24 10/13/24 History Metoprolol Tartrate [Lopressor] 50 mg PO BID 06/04/24 10/13/24 History Sildenafil Citrate [Sildenafil] 40 - 60 mg PO DAILY PRN 06/04/24 10/13/24 Histor y glipiZIDE [Glucotrol] 10 mg PO BID-W/MEALS 06/04/24 10/13/24 History lisinopriL [Zestril] 10 mg PO DAILY 06/04/24 10/13/24 History metFORMIN HCL 1,000 mg PO BID-W/MEALS 06/04/24 10/13/24 History Allergies Allergy/AdvReac Type Severity Reaction Status Date / Time Penicillins Allergy Causes Verified 10/13/24 16:27 "internal pain" & severe itching. Physical Exam Vitals: Vital Signs Temp Pulse Pulse Resp BP BP Pulse Ox 10/14/24 08:00 98.0 F 59 L 16 135/73 10/14/24 06:06 52 L 18 141/73 99 10/14/24 03:00 52 L 16 98 10/14/24 00:25 56 L 16 140/55 97 10/13/24 23:01 52 L 16 140/76 95 10/13/24 20:32 53 L 18 140/76 95 10/13/24 19:00 55 L 18 142/83 97 10/13/24 17:50 68 18 188/93 96 10/13/24 16:10 79 75 18 195/105 10/13/24 15:53 97.7 F 68 20 193/91 99 Intake and Output 10/13/24 10/14/24 10/14/24 22:59 06:59 14:59 Intake Total 79.167 377.798 Balance 79.167 377.798 Intake: IV 300 Intake, IV Titration 79.167 77.798 Amount Heparin Sod,Pork in 0.45% 79.167 77.798 NaCl 25,000 unit In 0.45 % NaCl 1 250ml.bag @ 8.89 UNITS/KG/HR 10 mls/hr IV .Q24H [facility] Rx#:[id number] Other: Weight 112.491 kg 111.13 kg 111.13 kg Results CBC & Chem 7: 10/13/24 16:00 10/13/24 16:00 Labs: Abnormal Lab Results - Last 24 Hours (Table) 10/13/24 10/13/24 10/13/24 Range/Units 16:00 16:00 16:00 Hgb 12.6 L (13.0-17.5) gm/dL Hct 38.6 L (39.0-53.0) % APTT 18.3 L (22.0-30.0) sec Glucose 216 H (74-99) mg/dL POC Glucose (mg/dL) (70-110) mg/dL Calcium 10.3 H (8.4-10.2) mg/dL Magnesium 1.5 L (1.6-2.3) mg/dL Total Bilirubin 1.6 H (0.2-1.3) mg/dL Troponin I (0.000-0.034) ng/mL 10/13/24 10/13/24 10/14/24 Range/Units 16:00 18:34 00:19 Hgb (13.0-17.5) gm/dL Hct (39.0-53.0) % APTT (22.0-30.0) sec Glucose (74-99) mg/dL POC Glucose (mg/dL) (70-110) mg/dL Calcium (8.4-10.2) mg/dL Magnesium (1.6-2.3) mg/dL Total Bilirubin (0.2-1.3) mg/dL Troponin I 0.042 H* 0.053 H* 0.069 H* (0.000-0.034) ng/mL 10/14/24 10/14/24 10/14/24 Range/Units 00:19 07:27 08:03 Hgb (13.0-17.5) gm/dL Hct (39.0-53.0) % APTT 30.3 H 59.3 H (22.0-30.0) sec Glucose (74-99) mg/dL POC Glucose (mg/dL) 132 H (70-110) mg/dL Calcium (8.4-10.2) mg/dL Magnesium (1.6-2.3) mg/dL Total Bilirubin (0.2-1.3) mg/dL Troponin I (0.000-0.034) ng/mL Thrombosis Risk Factor Assmnt - Choose All That Apply Each Factor Represents 1 point: Obesity (BMI >25) Other Risk Factors: Yes Each Risk Factor Represents 2 Points: Age 61-74 years Thrombosis Risk Factor Assessment Total Risk Factor Score: 3 Thrombosis Risk Factor Assessment Level: Moderate Risk Assessment and Plan Time with Patient: Less than 30
[2024-10-14] MEDS: SODIUM CHLORIDE 0.9% 1,000 ML IV ONE (15:19)
[2024-10-14 16:03] VITALS: RESP 18
[2024-10-14 16:18] LABS: Glucose,Whole Blood 207 mg/dL (70-110)
[2024-10-14] MEDS: glipiZIDE 10 MG TAB PO SCH (16:44)
[2024-10-14 20:07] LABS: Glucose,Whole Blood 169 mg/dL (70-110)
[2024-10-14] MEDS: TICAGRELOR 90 MG TAB PO SCH (21:02)
--- NOTE | 2024-10-15 00:52 | CC ---
CARDIAC CATHETERIZATION REPORT PROCEDURES: 1. Left heart catheterization and coronary angiography. 2. Percutaneous transluminal coronary angioplasty and stenting of the proximal and mid right coronary artery with 3 drug-eluting stents. 3. Intravascular ultrasound of right coronary artery. 4. Shockwave lithotripsy of right coronary artery. PERFORMED BY: Dr. Jason Gupta. Date of Service: 10/14/24 ANESTHESIA: Moderate conscious sedation time was 97 minutes. The patient was administered Versed. Oxygen saturation, hemodynamics, and EKG were monitored closely. CLINICAL INFORMATION: Mr. Douglas Paula is a 63-year-old gentleman with type 2 diabetes, hypertension, hyperlipidemia, and CAD. In 2018, he underwent stenting of LAD and RCA. This was performed at [facility] by Dr. Del Toro. He came to the hospital with chest pain suggestive of angina, was seen by Dr. Clayton, mild troponin elevation, inferior T- wave inversions, was advised coronary angiography after due discussion. I saw the patient and we discussed risks, benefits, options, rationale. He understood all details and wished to proceed with the procedure. PROCEDURE NOTE: Under strict aseptic precautions and local anesthesia with the help of the ultrasound, I gained access into the right radial artery. A 6-Kazakh introducer was placed. I used a JR4 and JL3.5 catheters and performed selective coronary angiography and I also checked the LV pressures with the right catheter, but did not do LV-gram. I then performed intervention of the RCA. Following the intervention, the patient's sheath was taken out and TR band applied as per protocol with saturation of the fingers of the right hand of 98%. The patient received 180 mg of Brilinta. He will be on aspirin and Brilinta without interruption for 1 year. He also received intravenous heparin and ACT was 275. CARDIAC CATHETERIZATION FINDINGS: The left ventricular end-diastolic pressure was 10 mmHg. No gradient across the aortic valve. CORONARY ANGIOGRAPHY FINDINGS: Right coronary artery: This is a large dominant vessel which was stented in the past. The entire mid segment has a stent and also the proximal portion has a stent. Within the stent, there are 2 focal 95% stenosis areas. Beyond this, it bifurcates into a larger PLV, smaller PDA, both of which have diffuse disease. PDA has a 50% narrowing. It is a large superdominant RCA that supplies a sizable amount of myocardium. There are two 95% in-stent restenotic lesions. Left main coronary artery: Short patent disease-free vessel that bifurcates into LAD and circumflex. Left anterior descending coronary artery: Good caliber vessel, gives off septal and diagonal branches, runs all the way to the apex. The midportion has a patent stent with good flow. No significant stenosis. Left posterior circumflex coronary artery: Nondominant vessel small in caliber, fair distribution, minor irregularities, no significant disease. FINAL IMPRESSION: This patient has a right-dominant system, normal filling pressures, no gradient, two 95% stenotic areas within the stented RCA in the midportion. The mid LAD stent is widely patent. No significant disease in LAD or circumflex. RECOMMENDATIONS: I recommended PCI of RCA and performed this in the same setting. PCI PROCEDURE DETAILS: I used a [facility] guide catheter to cannulate the right coronary artery and a Whisper wire to cross the lesion. Wire was kept distally. I tried to advance a 2.5 balloon. I had difficulty. With a 2.25 caliber 12 mm NC Trek balloon, I dilated the proximal and distal lesions. I had a lot of difficulty advancing a 2.5 balloon. I used another BHW wire and Whisper wire. Also, I could not advance the balloon. I then decided to go with a GuideLiner and a Whisper wire. With this combination, I was able to advance a 2.5 caliber NC Trek balloon and dilated the entire in-stent segment including the 2 areas of significant disease. There was moderate improvement. I then deployed a 2.75 caliber 18 mm Xience stent at the distal lesion and deployed this at 15 atmospheres. I then deployed a 12 mm 3.25 caliber stent proximal to this. Both the stented areas were then dilated with a 3.5 caliber NC Trek balloon. I then performed intravascular ultrasound, which revealed that the stent was fully expanded and well apposed. But the reference diameter was 4.0 in the proximal portion just proximal to the stent. I then went ahead with a 4.0 caliber NC Trek balloon and dilated the entire stented segment. Excellent angiographic result was achieved. Proximal to the stented segment, there was an area of haziness with a 60% narrowing, where the GuideLiner was sitting. I addressed this with a 12 mm long 4.0 caliber Xience stent and deployed this at 15 atmospheres. Excellent angiographic result was achieved. Before I deployed the stents, I performed shock wave lithotripsy of the proximal lesion. Two passes were made. Following the shock wave lithotripsy, I deployed the 2.5 caliber stent distally, a 3.25 caliber stent proximal to it, and eventually a 4.0 caliber 12 mm stent in the proximal portion. All the stented areas were dilated with a 4.0 NC Trek balloon. Excellent angiographic result without complication was achieved. Results were discussed with the patient and . He was sent to the room in a stable condition. MMODL / IJN: [id number] / MTDD
[2024-10-15 06:16] LABS: Glucose,Whole Blood 123 mg/dL (70-110)
[2024-10-15 07:27] LABS: Basophils % (A) 0 %; Eosinophils # (A) 0.2 k/uL (0-0.7); Eosinophils % (A) 2 %; HCT 36.2 % (39.0-53.0); HGB 11.5 gm/dL (13.0-17.5); Hypochromasia Slight; Lymphocytes # (A) 1.3 k/uL (1.0-4.8); Lymphocytes % (A) 18 %; MCH 28.3 pg (25.0-35.0); MCHC 31.8 g/dL (31.0-37.0); MCV 89.1 fL (80.0-100.0); Monocytes # (A) 0.4 k/uL (0-1.0); Monocytes % (A) 6 %; Neutrophils # (A) 5.5 k/uL (1.3-7.7); Neutrophils % (A) 73 %; Platelet Count 223 k/uL (150-450); RBC 4.07 m/uL (4.30-5.90); RDW 13.9 % (11.5-15.5); WBC 7.5 k/uL (3.8-10.6)
[2024-10-15 07:42] LABS: African American GFR (CKD) >90 (>60 ml/min/1.73 sqM); Anion Gap 11 mmol/L; Blood Urea Nitrogen 10 mg/dL (9-20); Calcium 9.1 mg/dL (8.4-10.2); Carbon Dioxide 22 mmol/L (22-30); Chloride 103 mmol/L (98-107); Glucose 119 mg/dL (74-99); Non-African American GFR(CKD) 80 (>60 ml/min/1.73 sqM); Potassium 4.1 mmol/L (3.5-5.1); Sodium 136 mmol/L (137-145)
[2024-10-15 07:44] VITALS: TEMP 98.4
[2024-10-15 09:00] LABS: Chol/HDL Ratio 2.66 Ratio; LDL Cholesterol,Calculated 48.9 mg/dL (0.0-131.0); VLDL Calculation 8.46 mg/dL (5.00-40.00)
[2024-10-15] MEDS: LOSARTAN 50 MG TAB PO SCH (09:33)
[2024-10-15 11:23] LABS: Glucose,Whole Blood 178 mg/dL (70-110)
[2024-10-15 11:25] VITALS: BP 123/70; PULSE 54
--- NOTE | 2024-10-15 12:24 | CA ---
Transthoracic Echo Report Name: Douglas Paula Age: 63 Gender: M : 1960 Exam Date: 10/14/2024 13:08 Exam Location: [facility] Ht (in): 73 Wt (lb): 245 Ordering Physician: Tawny Gupta MD ([id number]) Attending/Referring Phys: Last Putter Away Loretta Kincaid RDCS Procedure CPT: Indications: lvef Cardiac Hx: Technical Quality: Technically difficult study Contrast 1: Definity Total Dose (mL): 2 Contrast 2: Total Dose (mL): MEASUREMENTS (Male / Female) Normal Values 2D ECHO LV Diastolic Diameter PLAX 4.8 cm 4.2 - 5.9 / 3.9 - 5.3 cm LV Systolic Diameter PLAX 3.8 cm IVS Diastolic Thickness 1.3 cm 0.6 - 1.0 / 0.6 - 0.9 cm LVPW Diastolic Thickness 1.3 cm 0.6 - 1.0 / 0.6 - 0.9 cm LV Relative Wall Thickness 0.5 LVOT Diameter 2.3 cm LV Diastolic Volume MOD BP 178.4 cm??? 67 - 155 / 56 - 104 cm??? LV Systolic Volume MOD BP 92.1 cm??? 22 - 58 / 19 - 49 cm??? LV Ejection Fraction MOD BP 48.4 % >= 55 % LV Cardiac Index MOD BP 2669.8 cm???/min???m??? LV Diastolic Volume MOD 4C 192.8 cm??? LV Systolic Volume MOD 4C 102.4 cm??? LV Ejection Fraction MOD 4C 46.9 % LV Cardiac Index MOD 4C 2799.6 cm???/min???m??? LV Diastolic Length 4C 9.7 cm LV Systolic Length 4C 8.2 cm LV Diastolic Volume MOD 2C 161.6 cm??? LV Systolic Volume MOD 2C 77.4 cm??? LV Ejection Fraction MOD 2C 52.1 % LV Cardiac Index MOD 2C 2607.1 cm???/min???m??? LV Diastolic Length 2C 9.4 cm LV Systolic Length 2C 7.6 cm LA Volume 81.7 cm??? 18 - 58 / 22 - 52 cm??? LA Volume Index 33.7 cm???/m??? 16 - 28 cm???/m??? Ascending Aorta Diameter 4.1 cm DOPPLER AV Peak Velocity 150.8 cm/s AV Peak Gradient 9.1 mmHg AV Mean Velocity 108.2 cm/s AV Mean Gradient 5.3 mmHg AV Velocity Time Integral 30.4 cm LVOT Peak Velocity 110.4 cm/s LVOT Peak Gradient 4.9 mmHg LVOT Velocity Time Integral 24.6 cm LVOT Stroke Volume 105.0 cm??? LVOT Stroke Volume Index 44.8 ml/m??? LVOT Cardiac Index 3250.3 cm???/min???m??? AV Area Cont Eq vti 3.4 cm??? AV Area Cont Eq pk 3.1 cm??? MV Peak Velocity 129.3 cm/s MV Peak Gradient 6.7 mmHg MV Mean Velocity 72.7 cm/s MV Mean Gradient 2.5 mmHg MV Velocity Time Integral 31.2 cm MV Area PHT 4.0 cm??? Mitral E Point Velocity 63.2 cm/s Mitral A Point Velocity 87.0 cm/s Mitral E to A Ratio 0.7 MV Deceleration Time 191.3 ms PV Peak Velocity 82.7 cm/s PV Peak Gradient 2.7 mmHg FINDINGS Left Ventricle Left ventricular ejection fraction is estimated at 45-50 %. Mildly increased septal wall thickness. Mildly increased left ventricular diastolic volume. Severely increased left ventricular systolic volume. Mildly decreased left ventricular ejection fraction. Mildly reduced global left ventricular systolic function. Right Ventricle Right ventricle not well visualized. Unable to estimate the right ventricular systolic pressure. Right Atrium Right atrium not well visualized. Left Atrium Mildly increased left atrial volume. Mildly increased left atrial area. Mitral Valve Structurally normal mitral valve. Mitral annular calcification. No evidence for mitral valve prolapse. Mild mitral stenosis. Mild mitral regurgitation. Aortic Valve Aortic valve not well visualized. Aortic valve sclerosis. No aortic stenosis. No aortic regurgitation. Tricuspid Valve Structurally normal tricuspid valve. No tricuspid stenosis. No tricuspid regurgitation. Pulmonic Valve Pulmonic valve not well visualized. No pulmonic stenosis. Trace pulmonic regurgitation. Pericardium No pericardial effusion. Aorta Aortic annulus normal. Ascending aorta mildly enlarged. CONCLUSIONS Indication: Congestive heart failure Technically difficult study LVEF 45 to 50% Mild concentric LVH No obvious regional wall motion abnormality Mild left atrial dilatation Mild mitral regurgitation Previewed by: Dr Tio Macias (Electronically Signed) Final Date: 15 October 2024 12:23
--- NOTE | 2024-10-15 14:14 | P.PN ---
Subjective Progress Note Date: 10/15/24 Consult reason: chest pain History of present illness: This is a 63-year-old male patient of Dr. Del Toro with past medical history of diabetes mellitus type 2, coronary artery disease with previous MS in 2017 status post 2 stent placement at that time. We have been asked to evaluate the patient for chest pain. Patient states that he has been having trouble with bacterial upper respiratory infection but yesterday developed chest pain that then went to his jaw and his ears and then he developed a sinus headache. He said it lasted for about 1 hour on and off. He took some ibuprofen that did not help. He did not have nitroglycerin at home. He denies having any chest pain at this time. Patient is seen in the emergency center waiting for a bed on the cardiac stepdown unit. He has been started on a heparin drip. Discussed patient option of cardiac catheterization which she is agreeable to move forward with. Regarding diabetes, patient does not know his most recent A1c but states he usually runs around 7. Patient presented with a blood pressure 193/91 and currently blood pressure is 141/73, heart rate 52, pulse ox 99%. -EKG: Sinus rhythm with T wave inversions -Chest x-ray: No acute process. -Laboratory studies: WBC 8.3, hemoglobin 12.6. Potassium 4.6, creatinine 0.96. Troponin 0.042, 0.053, 0.069. proBNP 2230. Magnesium 1.5. -Home cardiac medications: Aspirin 81 mg daily, atorvastatin 80 mg daily, lisinopril 10 mg daily, Lopressor 50 mg twice daily. 10/15 Patient is seen and examined. Yesterday, he underwent cardiac catheterization with Dr. Gupta which revealed to 95% stenotic areas within the stented RCA in the midportion. The mid LAD stent is widely patent. No significant disease in the LAD or circumflex. Patient subsequently underwent stenting of the proximal and mid RCA with 3 drug-eluting stents, shockwave lithotripsy of the right coronary artery. Patient denies having any chest pain no shortness of breath, no lightheadedness or dizziness. He states he has been ambulating in the hallway. Blood pressure 120/70, heart rate 69, pulse ox 100% on room air. Repeat blood work reveals hemoglobin 9.5, BUN 10 and creatinine 0.99. Echocardiogram reveals EF of 45 to 50%, mild concentric LVH. Mild left atrial dilatation. Mild mitral regurgitation. Physical examination: Gen: This is a 63-year-old male in no acute distress VS: reviewed HEENT: Head is atraumatic, normocephalic. Pupils equal, round. Sclerae is anicteric. NECK: Supple. No JVD. LUNGS: Clear to auscultation. No wheezes or rhonchi. No intercostal retractions. HEART: Regular rate and rhythm. No murmur. ABDOMEN: Soft No tenderness. EXTREMITIES: No pedal edema. No calf tenderness. NEUROLOGICAL: Patient is awake, alert and oriented x3. Assessment: Elevated troponin with abnormal EKG, non-ST KRISTA status post stenting of the proximal and mid RCA 10/14 History of coronary artery disease with previous MS in 2017 s/p stenting in the left main and 1 other vessel Diabetes mellitus type 2 Hypertension Hyperlipidemia Plan: Continue patient on Brilinta 90 mg twice daily with aspirin 81 mg daily Continue losartan and Nitrostat Patient is cleared for discharge from cardiology and may follow-up in the office with Dr. Clayton in 1 week. Nurse practitioner note has been reviewed, I agree with documented findings and plan of care. Patient was seen and examined. Objective - Vital Signs Vital signs: Vital Signs Temp 98.4 F 10/15/24 07:41 Pulse 69 10/15/24 07:41 Resp 18 10/15/24 07:41 BP 120/70 10/15/24 07:41 Pulse Ox 100 10/15/24 07:41 FiO2 Intake & Output 10/14/24 10/15/24 10/15/24 18:59 06:59 18:59 Intake Total 917.798 600 240 Balance 917.798 600 240 Weight 111.13 kg 98.5 kg Intake: IV 600 Intake, IV Titration 77.798 600 Amount Heparin Sod,Pork in 0.45% 77.798 NaCl 25,000 unit In 0.45 % NaCl 1 250ml.bag @ 8.89 UNITS/KG/HR 10 mls/hr IV .Q24H PATRICIO Rx#:[id number] Sodium Chloride 0.9% 1, 600 000 ml @ 75 mls/hr IV . [id number] PATRICIO Rx#:[id number] Oral 240 240 Other: Voiding Method Toilet # Voids 1 1 - Labs CBC & Chem 7: 10/15/24 06:26 10/15/24 06:26 Labs: Abnormal Lab Results - Last 24 Hours (Table) 10/13/24 10/14/24 10/14/24 Range/Units 16:00 08:57 16:16 RBC (4.30-5.90) m/uL Hgb (13.0-17.5) gm/dL Hct (39.0-53.0) % Sodium (137-145) mmol/L Glucose (74-99) mg/dL POC Glucose (mg/dL) 207 H (70-110) mg/dL Hemoglobin A1c 7.9 H (<=6.0) % HDL Cholesterol 34.60 L (40.00-60.00) mg/dL 10/14/24 10/15/24 10/15/24 Range/Units 20:05 06:11 06:26 RBC 4.07 L (4.30-5.90) m/uL Hgb 11.5 L (13.0-17.5) gm/dL Hct 36.2 L (39.0-53.0) % Sodium (137-145) mmol/L Glucose (74-99) mg/dL POC Glucose (mg/dL) 169 H 123 H (70-110) mg/dL Hemoglobin A1c (<=6.0) % HDL Cholesterol (40.00-60.00) mg/dL 10/15/24 Range/Units 06:26 RBC (4.30-5.90) m/uL Hgb (13.0-17.5) gm/dL Hct (39.0-53.0) % Sodium 136 L (137-145) mmol/L Glucose 119 H (74-99) mg/dL POC Glucose (mg/dL) (70-110) mg/dL Hemoglobin A1c (<=6.0) % HDL Cholesterol (40.00-60.00) mg/dL
== END 2024-10-15 12:22 | disposition home or self-care (01) | DRG 323 ==
LOC: EC 15:47 → 3SCARD 17:48
PROVIDERS: ADMIT Hospitalist; ATTEND Hospitalist
PROC: B240ZZ3 Ultrasonography of Single Coronary Artery, Intravascular (ICD-10-PCS; 2024-10-14)
PROC: 4A023N7 Measurement of Cardiac Sampling and Pressure, Left Heart, Percutaneous Approach (ICD-10-PCS; principal; 2024-10-14 17:15)
PROC: 027236Z Dilation of Coronary Artery, Three Arteries with Three Drug-eluting Intraluminal Devices, Percutaneous Approach (ICD-10-PCS; 2024-10-14 17:15)
PROC: 02F03ZZ Fragmentation in Coronary Artery, One Artery, Percutaneous Approach (ICD-10-PCS; 2024-10-14 17:15)
PROC: B2111ZZ Fluoroscopy of Multiple Coronary Arteries using Low Osmolar Contrast (ICD-10-PCS; 2024-10-14 17:15)
DX: T82.855A Stenosis of coronary artery stent, initial encounter (principal); I21.4 Non-ST elevation (NSTEMI) myocardial infarction; E11.9 Type 2 diabetes mellitus without complications; I10 Essential (primary) hypertension; E78.5 Hyperlipidemia, unspecified; I25.10 Atherosclerotic heart disease of native coronary artery without angina pectoris; I25.2 Old myocardial infarction; I49.3 Ventricular premature depolarization; Z79.82 Long term (current) use of aspirin; Z79.84 Long term (current) use of oral hypoglycemic drugs; Z79.899 Other long term (current) drug therapy; Z95.5 Presence of coronary angioplasty implant and graft; Z88.0 Allergy status to penicillin
CPT/HCPCS: 36415; 71046; 80048; 80053; 80061; 83036; 83735; 83880; 84484; 85025; 85610; 85730; 92972; 92978; 93005; 93306; 93458; 96365; 96366; 99291